=== PATIENT | male | born 1965 | race Caucasian/White ===

== ENCOUNTER 2022-09-13 15:37 | Emergency (ER) | payer BC ==
[2022-09-13] MEDS ORDERED: Albuterol/Ipratropium 3.0-0.5 MG/3 ML Neb Soln NEB ONE (16:17)
[2022-09-13] MEDS ORDERED: Albuterol 6.7 GM Inhaler INH ONE (16:36)
[2022-09-13] MEDS ORDERED: predniSONE 20 MG Tab PO ONE (16:37)
[2022-09-13] MEDS ORDERED: Azithromycin 250 MG Tab PO ONE (16:38)
[2022-09-13 16:44] LABS: ANION GAP 14.7 mEq/L (7-13)
== END 2022-09-13 17:10 | disposition home or self-care (01) ==
LOC: DL.ED 15:37
DX: J44.1 Chronic obstructive pulmonary disease with (acute) exacerbation (principal); R09.1 Pleurisy; R74.8 Abnormal levels of other serum enzymes; I25.10 Atherosclerotic heart disease of native coronary artery without angina pectoris; E78.00 Pure hypercholesterolemia, unspecified; I25.2 Old myocardial infarction; F17.210 Nicotine dependence, cigarettes, uncomplicated; Z79.82 Long term (current) use of aspirin; Z79.899 Other long term (current) drug therapy
CPT/HCPCS: 36415; 71046; 80053; 83605; 83880; 84484; 85025; 85379; 94640; 99284; A9270-GY; J7512; J7620-GY

== ENCOUNTER 2022-10-13 05:28 | Day surgery (SDC) | payer BC ==
[~2022-10-13 05:28] MED LIST: Dextrose 5%-0.45% NaCl 1,000 ML IV SCH; Sodium Chloride 0.9% 10 ML Syringe FLUSH PRN; Sodium Chloride 0.9% 10 ML Syringe FLUSH SCH
[2022-10-13] MEDS ORDERED: Dextrose 5%-0.45% NaCl 1,000 ML IV SCH (06:00)
[2022-10-13] MEDS ORDERED: Midazolam 1 MG/ML 2 ML SDV ONE (06:19)
[2022-10-13] MEDS ORDERED: fentaNYL 100 MCG/2 ML SDV ONE (06:19)
[2022-10-13] MEDS ORDERED: fentaNYL 100 MCG/2 ML SDV IV ONE ×2 (06:28→06:29)
[2022-10-13] MEDS ORDERED: Midazolam 1 MG/ML 2 ML SDV IV ONE ×2 (06:29→06:30)
== END 2022-10-13 08:15 | disposition home or self-care (01) ==
LOC: DL.ENDO 05:28
PROVIDERS: ATTEND Internal Medicine Gastroenterology
DX: K20.90 Esophagitis, unspecified without bleeding (principal); I25.10 Atherosclerotic heart disease of native coronary artery without angina pectoris; E78.5 Hyperlipidemia, unspecified; E83.119 Hemochromatosis, unspecified; I10 Essential (primary) hypertension; E11.9 Type 2 diabetes mellitus without complications; E66.09 Other obesity due to excess calories; F17.210 Nicotine dependence, cigarettes, uncomplicated; Z95.5 Presence of coronary angioplasty implant and graft; Z68.33 Body mass index [BMI] 33.0-33.9, adult; R79.89 Other specified abnormal findings of blood chemistry
CPT/HCPCS: 87077; J2250; J3010; J7042

== ENCOUNTER 2022-10-14 05:53 | Day surgery (SDC) | payer BC ==
[2022-10-14] MEDS ORDERED: Dextrose 5%-0.45% NaCl 1,000 ML IV SCH (06:00)
[2022-10-14] MEDS ORDERED: Midazolam 1 MG/ML 2 ML SDV ONE (07:13)
[2022-10-14] MEDS ORDERED: fentaNYL 100 MCG/2 ML SDV ONE (07:13)
[2022-10-14] MEDS ORDERED: fentaNYL 100 MCG/2 ML SDV IV ONE ×2 (07:19→07:20)
[2022-10-14] MEDS ORDERED: Midazolam 1 MG/ML 2 ML SDV IV ONE ×5 (07:20→07:35)
== END 2022-10-14 09:05 | disposition home or self-care (01) ==
LOC: DL.ENDO 05:53
PROVIDERS: ATTEND Internal Medicine Gastroenterology
DX: Z12.11 Encounter for screening for malignant neoplasm of colon (principal); D12.4 Benign neoplasm of descending colon; D12.5 Benign neoplasm of sigmoid colon; K62.1 Rectal polyp; K57.30 Diverticulosis of large intestine without perforation or abscess without bleeding; K64.8 Other hemorrhoids; I10 Essential (primary) hypertension; E83.119 Hemochromatosis, unspecified; E66.09 Other obesity due to excess calories; I25.10 Atherosclerotic heart disease of native coronary artery without angina pectoris; F17.210 Nicotine dependence, cigarettes, uncomplicated; E78.5 Hyperlipidemia, unspecified; E11.9 Type 2 diabetes mellitus without complications; Z68.33 Body mass index [BMI] 33.0-33.9, adult; Z95.5 Presence of coronary angioplasty implant and graft
CPT/HCPCS: J2250; J3010; J7042